=== PATIENT | male | born 1995 | race African-American/Black ===

== ENCOUNTER 2022-10-10 16:38 | Inpatient (IN) | payer MEDICAID ==
[~2022-10-10] VITALS: Ht 190.5 cm; Wt 82.1 kg
[2022-10-10 16:52] VITALS: BP_SYST 124
[2022-10-10 18:32] LABS: BASOPHILS # (AUTO) 0.1 K/uL (0.0-0.2); BASOPHILS % (AUTO) 1.2 % (0.0-2.0); EOSINOPHILS # (AUTO) 0.2 K/uL (0.0-0.4); EOSINOPHILS % (AUTO) 3.1 % (0.0-4.0); HEMATOCRIT 34.5 % (36-54); HEMOGLOBIN 11.8 g/dL (14.0-18.0); LYMPHOCYTES # (AUTO) 2.2 K/uL (1.0-5.5); LYMPHOCYTES % (AUTO) 30.4 % (20.5-51.5); MEAN CORPUSCULAR HEMOGLOBIN 28 pg (27-31); MEAN CORPUSCULAR HGB CONC 34 % (32-36); MEAN CORPUSCULAR VOLUME 83 fL (79.0-98.0); MONOCYTES # (AUTO) 0.8 K/uL (0.0-1.0); MONOCYTES % (AUTO) 10.4 % (1.7-9.3); NEUTROPHILS % (AUTO) 54.9 % (40.0-70.0); PLATELET COUNT (AUTO) 343 K/uL (130-430); RED BLOOD CELL COUNT(AUTO) 4.18 MIL/uL (4.2-6.2); RED CELL DISTRIBUTION WIDTH 12.7 % (9.0-15.0); WHITE BLOOD COUNT (AUTO) 7.2 K/uL (4.8-10.8)
[2022-10-10 18:36] LABS: CALCIUM 9.5 mg/dL (8.4-11.0)
[2022-10-10 18:42] LABS: ALBUMIN 3.4 g/dL (3.4-4.8); TOTAL BILIRUBIN 0.5 mg/dL (0.0-1.0)
[2022-10-10] MEDS ORDERED: NACL 0.9% 1,000 ML IV ONE (19:00)
[2022-10-10] MEDS ORDERED: *HEPARIN PER PHARMACY XX ONE ×2 (19:15→21:45)
[2022-10-10 19:39] LABS: PROTHROMBIN TIME 10.4 SECS (9.5-12.5)
[2022-10-10] MEDS ORDERED: KETOROLAC TROMETHAMINE 30 MG VIAL IVP ONE (21:15)
[2022-10-10] MEDS ORDERED: HEPARIN 25,000 UNITS/D5W 250ML 250 ML IV ONE (21:34)
[2022-10-10] MEDS ORDERED: HEPARIN 25,000 UNITS in 250 ML PREMIX IV PRN (22:15)
[2022-10-10] MEDS ORDERED: HEPARIN SODIUM,PORCINE 2000 UNITS/0.4 ML BOLUS IVP PRN (22:15)
[2022-10-10] MEDS ORDERED: HEPARIN SODIUM,PORCINE 3000 UNITS/0.6 ML BOLUS IVP PRN (22:15)
[2022-10-10] MEDS ORDERED: HEPARIN SODIUM,PORCINE 5,000 UNITS/ML VIAL IV ONE ×2 (22:30)
[2022-10-11 00:20] VITALS: BP_SYST 126
[2022-10-11] MEDS ORDERED: FLU VACC QS2022-23(6MOS UP)/PF 0.5 ML/SYR SYRINGE I.M. PRN (00:30)
[2022-10-11 06:31] VITALS: BP_SYST 115
[2022-10-11 08:00] VITALS: BP_SYST 115
[2022-10-11] MEDS ORDERED: APIXABAN 2.5 MG TABLET PO ONE (10:00)
[2022-10-11] MEDS ORDERED: IBUP-1969 PO (11:18)
[2022-10-11] MEDS ORDERED: APIX5TAB PO (11:20)
[2022-10-11] MEDS ORDERED: APIX2.5T PO (11:20)
[2022-10-11 12:00] VITALS: BP_SYST 120
[2022-10-11 13:00] VITALS: BP_SYST 120
[2022-10-11] MEDS ORDERED: APIXABAN 2.5 MG TABLET PO SCH (21:00)
== END 2022-10-11 13:45 | disposition home or self-care (01) | DRG 197 ==
LOC: SED 16:38 → STU 21:30
PROVIDERS: ADMIT Preventive Medicine Preventive Medicine/Occupational Environmental Medicine; ATTEND Preventive Medicine Preventive Medicine/Occupational Environmental Medicine
DX: I82.412 Acute embolism and thrombosis of left femoral vein (principal); I82.432 Acute embolism and thrombosis of left popliteal vein; D64.9 Anemia, unspecified; R73.9 Hyperglycemia, unspecified; Z20.822 Contact with and (suspected) exposure to COVID-19
CPT/HCPCS: 36415; 80053; 85025; 85610-TC; 85730-TC; 93971; 99285; G0378; J1644; J1885